=== PATIENT | female | born 1945 | race Caucasian/White ===

== ENCOUNTER 2023-04-14 15:04 | Inpatient (IN) | payer MEDICARE, OTHER ==
[~2023-04-14] VITALS: Ht 160 cm; Wt 54.4 kg
[2023-04-14 16:39] LABS: BASOPHILS ABSOLUTE AUTO 0.04 K/mm3 (0.00-0.23); BASOPHILS PERCENT AUTO 1 % (0-2); EOSINOPHILS ABSOLUTE AUTO 0.14 K/mm3 (0.00-0.68); EOSINOPHILS PERCENT AUTO 2 % (0-6); Hematocrit 33.8 % (33.0-51.0); Hemoglobin 10.8 g/dL (11.5-16.0); IMMATURE GRAN ABSOLUTE AUTO 0.02 K/mm3 (0.00-0.10); IMMATURE GRAN PERCENT AUTO 0 % (0-1); LYMPHOCYTES ABSOLUTE AUTO 1.31 K/mm3 (0.84-5.20); LYMPHOCYTES PERCENT AUTO 22 % (21-46); MONOCYTES ABSOLUTE AUTO 0.32 K/mm3 (0.16-1.47); MONOCYTES PERCENT AUTO 5 % (4-13); Mean Corpuscular HGB 31.5 pg (26.0-34.0); Mean Corpuscular Volume 99 fL (80-100); NEUTROPHILS ABSOLUTE AUTO 4.15 K/mm3 (1.96-9.15); NEUTROPHILS PERCENT AUTO 69 % (41-73); Platelet Count 382 K/mm3 (150-400); RDW Coefficient Variation 17.1 % (11.7-14.2); Red Blood Cell Count 3.43 M/mm3 (3.80-5.20); White Blood Cell Count 5.98 K/mm3 (4.00-11.30)
[2023-04-14 16:51] LABS: Prothrombin Time Results 10.5 Sec (9.7-11.5)
[2023-04-14 16:57] LABS: Albumin, Blood 2.8 g/dL (3.4-5.0); Albumin/Globulin Ratio 0.7 (0.8-1.8); Bilirubin, Total 0.3 mg/dL (0.1-1.0); Bun/Creatinine Ratio 14.7 (12.0-20.0); Calcium, Blood 8.6 mg/dL (8.5-10.1); Creatinine, Blood 0.54 mg/dL (0.40-1.00); Globulin, Blood 4.2 g/dL (2.2-4.0); Potassium, Blood 3.6 mmol/L (3.5-5.5)
[2023-04-14 17:12] LABS: Anti-Xa UFH, PHA Monitoring <0.10 IU/mL
--- NOTE | 2023-04-14 21:36 | NUR ---
ADMIT NOTE ADMITTED 77 YR OLD FEMALE FROM THE ED TO THE FLOOR WITH DX OF VTE BLOODCLOT (BILAT PE, AND CLOT/S IN LEFT LEG. SEE ED NOTES ON ADMISSION. ALERT AND ORIENTED. VOICED IS A NURSE. HEP DRIP WAS INFUSING FROM ED AT 18U/KG IN LEFT AC, BUT NOTED AREA WAS INFILTRATED. SITE DC'D AND NEW IV PLACED IN RIGHT ARM. TOLERATED WELL. ORIENTED TO USE OF CALL LIGHT. CALL LIGHT IN REACH.
[2023-04-14 21:42] VITALS: BP 125/63
[2023-04-15] VITALS (8 sets, daily range): BP systolic 110–140; BP diastolic 56–81
--- NOTE | 2023-04-15 00:51 | NUR ---
NURSE NOTE INTERMITTENT CONFUSION, PULLED OUT IV SHE WENT TO BATHROOM. VOICED ANGRILY THAT SHE DIDNT KNOW WHY SHE WAS HERE IN THE HOSPITAL AND WHEN REDIRECTED, VOICED SURPRISE THAT SHE WAS ON HEPARIN FOR PE'S AND CLOTS. WHEN NEW IV SITE OBTAINED, WILL RESTART HEPARIN DRIP AND CALL MD FOR POSSIBLE RESTRAINT TO PREVENT FUTURE ISSUES.
--- NOTE | 2023-04-15 01:30 | NUR ---
MD NOTIFIED OF PT CONFUSION AND RESTRAINT ORDER OBTAINED FOR BILAT WRISTS. WILL CONTINUE TO MONITOR. CALL LIGHT IN REACH. RESPS EVEN.
[2023-04-15 01:42] LABS: BASOPHILS ABSOLUTE AUTO 0.05 K/mm3 (0.00-0.23); BASOPHILS PERCENT AUTO 1 % (0-2); EOSINOPHILS ABSOLUTE AUTO 0.28 K/mm3 (0.00-0.68); EOSINOPHILS PERCENT AUTO 6 % (0-6); Hematocrit 30.4 % (33.0-51.0); Hemoglobin 9.8 g/dL (11.5-16.0); IMMATURE GRAN ABSOLUTE AUTO 0.01 K/mm3 (0.00-0.10); IMMATURE GRAN PERCENT AUTO 0 % (0-1); LYMPHOCYTES ABSOLUTE AUTO 1.39 K/mm3 (0.84-5.20); LYMPHOCYTES PERCENT AUTO 29 % (21-46); MONOCYTES ABSOLUTE AUTO 0.32 K/mm3 (0.16-1.47); MONOCYTES PERCENT AUTO 7 % (4-13); Mean Corpuscular HGB 31.3 pg (26.0-34.0); Mean Corpuscular HGB Conc 32.2 g/dL (31.5-36.5); Mean Corpuscular Volume 97 fL (80-100); Mean Platelet Volume 8.8 fL (9.1-12.4); NEUTROPHILS ABSOLUTE AUTO 2.67 K/mm3 (1.96-9.15); NEUTROPHILS PERCENT AUTO 57 % (41-73); Platelet Count 350 K/mm3 (150-400); RDW Standard Deviation 59.7 fL (35.1-46.3); Red Blood Cell Count 3.13 M/mm3 (3.80-5.20); White Blood Cell Count 4.72 K/mm3 (4.00-11.30)
[2023-04-15 02:16] LABS: Albumin, Blood 2.5 g/dL (3.4-5.0); Albumin/Globulin Ratio 0.7 (0.8-1.8); Bilirubin, Total 0.3 mg/dL (0.1-1.0); Bun/Creatinine Ratio 12.7 (12.0-20.0); Calcium, Blood 8.4 mg/dL (8.5-10.1); Creatinine, Blood 0.47 mg/dL (0.40-1.00); Globulin, Blood 3.7 g/dL (2.2-4.0); Potassium, Blood 3.3 mmol/L (3.5-5.5); Total Protein, Blood 6.2 g/dL (6.4-8.2)
--- NOTE | 2023-04-15 03:22 | NUR ---
SCALLOP CUTTER MACHINE SUMMARY VSS. WAS ADMITTED TO FLOOR EARLIER FROM THE ED WITH BILAT PE AND CLOTS IN LEG. PLACED ON HEPARIN DRIP IN THE ED, TRANSFERRED TO FLOOR, FIRST IV INFILTRATED, WAS DC'D AND ANOTHER IV PLACED IN RIGHT ARM. BECAME CONFUSED AND PULLED IV OUT WHEN GOING TO THE BATHROOM. BECAME AGITATED RE SITUATION, REDIRECTED, ANOTHER IV PLACED AND PT WAS PLACED IN BILAT SOFT WRIST RESTRAINTS PER MD ORDERS TO MAINTAIN IV HEPARIN DRIP. RESTING INTERMITTENTLY. CALL LIGHT IN REACH. WILL CONTINUE TO MONITOR.
--- NOTE | 2023-04-15 04:42 | NUR ---
NURSE NOTE PT RECEIVED FIRE IGNITION TEACHNIG RE NO SMOKING WHILE ON O2, AND NO SMOKING IN THE HOSPITAL EARLIER
--- NOTE | 2023-04-15 17:27 | NUR ---
SHIFT SUMMARY PATIENT PULLING ON HER IV AND TELE LEADS/STICKERS THROUGHOUT DAY, RESTRAINTS DC/D AT 0745, AND PLACED ON REMOTE MONITORING AT 1030. PATIENT REDIRECTABLE WITH VERBAL CUEING. NO PAIN ISSUES DURING THIS SHIFT. FIRE SAFETY PREVENTION AND EDUCATION PROVIDED. CALL LIGHT IN REACH. PATIENT DOES NOT CALL, REMOTE MONITOR ALERTS THROUGHOUT SHIFT. PATIENT LEFT UNIT AT [address] CASTANEDA.
--- NOTE | 2023-04-15 20:40 | NUR ---
TRANSFER NOTE/ASSUMPTION OF CARE PT TO ROOM FROM PROCEDURE AT 1908. SHIFT REPORT DONE AT BEDSIDE WITH AM RN. ORDERS REPORTED BY [facility] RN'S TO KEEP PT BEDBOUND OVERNIGHT, AND KEEP HOB FLAT FOR 30 MINUTES. FLOWSTASIS DEVICES IN POPLITEAL REGION OF BILAT LEGS. NO NOTED BLEEDING ON RIGHT LEG SITE, SMALL AMOUNT OF BLEEDING NOTED ON LEFT LEG SITE. MD CASTANEDA TO BEDSIDE WITH VERBAL ORDERS TO REMAIN BEDBOUND OVERNIGHT, RESTART HEP GTT AT PREVIOUS RATE, KEEP BOTH FLOWSTASIS DEVICES IN PLACE UNTIL AM. VERBAL ORDER FOR THIS RN TO CHECK SITE Q30MIN X4. SITE REMAINS UNCHANGED AT THIS TIME SINCE ARRIVAL TO UNIT. VITALS STABLE. PT PLACED ON 1L VIA NC D/T SPO2 88-89% ON RA WHILE LYING FLAT. PT DENIES PAIN OR SOB. SB/SR ON MONITOR. PT WITH HX DEMENTIA. ORIENTED TO SELF/FAMILY. BED ALARM ON. AVASURE CAMERA IN ROOM FOR SAFETY OF LINES AND OOB. BED IN LOWEST POSITION AND CALL LIGHT WITHIN REACH.
[2023-04-16 03:12] VITALS: BP 130/67
--- NOTE | 2023-04-16 04:30 | NUR ---
SHIFT SUMMARY NO ACUTE CHANGES OVERNIGHT. PT CONTINUES TO BE ALERT AND ORIENTED TO SELF ONLY. CONFUSED OFTEN. CAMERA AND BED ALARM ON IN ROOM FOR SAFETY. PT PULLING AT LINES, ATTEMPTING OOB, AND YELLING AT STAFF D/T CONFUSION DURING THIS SHIFT. CAN BE REDIRECTABLE AT TIMES. REINFORCED EDUCATION ABOUT POST PROCEDURE RESTRICTIONS AND BED BOUND STATUS. ON RA WITH SPO2 >92%. BP STABLE. SB/SR ON MONITOR. AFEBRILE. DENIES PAIN/SOB. FREQUENTLY ATTEMPTING TO GRAB FLOWSTASIS DEVICES ON BILAT POPLITEAL SITES. TEGADERM REPLACED ON DEVICE. NO NOTED NEW BLEEDING/DISCOLORATION/HEMATOMA. SEE PREVIOUS NOTE. PPP. HEP GTT INFUSING PER EMAR. BED IN LOWEST POSITION AND CALL LIGHT WITHIN REACH. THIS RN WILL CONTINUE TO MONITOR UNTIL SHIFT CHANGE AT 0700.
[2023-04-16 06:05] LABS: BASOPHILS ABSOLUTE AUTO 0.02 K/mm3 (0.00-0.23); BASOPHILS PERCENT AUTO 0 % (0-2); EOSINOPHILS PERCENT AUTO 0 % (0-6); Hematocrit 32.8 % (33.0-51.0); Hemoglobin 10.1 g/dL (11.5-16.0); IMMATURE GRAN ABSOLUTE AUTO 0.02 K/mm3 (0.00-0.10); IMMATURE GRAN PERCENT AUTO 0 % (0-1); LYMPHOCYTES ABSOLUTE AUTO 0.87 K/mm3 (0.84-5.20); LYMPHOCYTES PERCENT AUTO 19 % (21-46); MONOCYTES ABSOLUTE AUTO 0.13 K/mm3 (0.16-1.47); MONOCYTES PERCENT AUTO 3 % (4-13); Mean Corpuscular HGB 30.5 pg (26.0-34.0); Mean Corpuscular HGB Conc 30.8 g/dL (31.5-36.5); Mean Corpuscular Volume 99 fL (80-100); Mean Platelet Volume 9.7 fL (9.1-12.4); NEUTROPHILS ABSOLUTE AUTO 3.56 K/mm3 (1.96-9.15); NEUTROPHILS PERCENT AUTO 78 % (41-73); Platelet Count 427 K/mm3 (150-400); RDW Coefficient Variation 17.2 % (11.7-14.2); RDW Standard Deviation 62.6 fL (35.1-46.3); Red Blood Cell Count 3.31 M/mm3 (3.80-5.20)
[2023-04-16 06:30] LABS: Calcium, Blood 8.3 mg/dL (8.5-10.1); Creatinine, Blood 0.5 mg/dL (0.40-1.00); Potassium, Blood 3.6 mmol/L (3.5-5.5)
[2023-04-16 07:16] VITALS: BP 132/65
--- NOTE | 2023-04-16 09:17 | NUR ---
HEP GTT STOPPED AT ABOUT [address] CASTANEDA. PO ANTICOAG STARTED BY DR. TONY. FLOWSTASIS PLANNED FOR REMOVAL TWO HRS AFTER HEPARIN STOPPED.
--- NOTE | 2023-04-16 10:41 | NUR ---
BILATERAL FLOWSTASIS REMOVED TWO HOURS AFTER HEP GTT STOPPED. SITE CLEANED. TEGADERM INTACT. PT EDUCATED AND TOLERATED WELL.
--- NOTE | 2023-04-16 10:57 | NUR ---
PT REFUSING SHOWER OR BEDBATH. PT BELIEVES THAT SHE HAD A SHOWER THIS AM. SHE HAS NOT BEEN BATHED BUT WILL NOT LET STAFF CLEAN HER UP. HER WAS AT BEDSIDE TO WHITTNESS THE REFUSAL. I EDUCATED THE THAT WE CAN NOT FORCE CARE ON HER. HE UNDERSTOOD. WAITING FOR DISCHARGE.
[2023-04-16] MEDS ORDERED: DONEPEZIL HCL10 MG PO (11:08)
[2023-04-16] MEDS ORDERED: ELIQUIS5 M2 PO (11:09)
--- NOTE | 2023-04-16 12:09 | NUR ---
MORNING SUMMARY PT IS A&OX2-3. SHE FORGETS LIMITATIONS AND WILL TRY TO GET OUT OF BED WITHOUT ASSITANCE. PT PULLS AT LINES. VIRTUAL FIRE ALARM INSTALLER IN THE ROOM AND BED OR CHAIR ALARM IS IN PLACE. PT HAD HER FLOWSTASIS REMOVED AND THE DRESSINGS ARE C/D/I. PT REFUSED A BATH OR SHOWER TODAY. HAS BEEN AT BEDSIDE. PT IS PENDING DISCHARGE. PT'S TELE WAS D/C'D PER DR. TONY DUE TO THE PT PULLING IT OFF. WAITING ON A RIDE FOR THE PT BEFORE DISCHARGE. NO ACUTE EVENTS.
--- NOTE | 2023-04-16 13:45 | NUR ---
DISCHARGE: Pt and her given verbal and written discharge instructions. Including activity, wound care, follow up appointments and medications. Pt and deny questions. IV discontinued and cath intact. Pt ambulated out with and PEOPLESOFT. Stable at time of dishcarge.
== END 2023-04-16 13:55 | disposition home or self-care (01) | DRG 270 ==
LOC: ER 15:04 → SURS 17:51 → PCU 17:51 → MEDS 17:51 → PCU 04-15 17:30
PROVIDERS: Student in an Organized Health Care Education/Training Program; ADMIT Internal Medicine
PROC: 06C03ZZ Extirpation of Matter from Inferior Vena Cava, Percutaneous Approach (ICD-10-PCS; principal; 2023-04-15)
PROC: B51D1ZZ Fluoroscopy of Bilateral Lower Extremity Veins using Low Osmolar Contrast (ICD-10-PCS; 2023-04-15)
DX: I82.220 Acute embolism and thrombosis of inferior vena cava (principal); I26.99 Other pulmonary embolism without acute cor pulmonale; I82.422 Acute embolism and thrombosis of left iliac vein; G30.9 Alzheimer's disease, unspecified; F02.80 Dementia in other diseases classified elsewhere, unspecified severity, without behavioral disturbance, psychotic disturbance, mood disturbance, and anxiety; F32.A Depression, unspecified; I10 Essential (primary) hypertension; K63.89 Other specified diseases of intestine; E78.5 Hyperlipidemia, unspecified; E53.8 Deficiency of other specified B group vitamins; D53.9 Nutritional anemia, unspecified; R41.0 Disorientation, unspecified; E88.81 Metabolic syndrome and other insulin resistance; Z96.659 Presence of unspecified artificial knee joint; Z91.041 Radiographic dye allergy status; Z90.710 Acquired absence of both cervix and uterus; Z98.890 Other specified postprocedural states; Z90.722 Acquired absence of ovaries, bilateral
CPT/HCPCS: 36415; 37187; 37252; 75774; 75822; 75825; 76937; 80048; 80053; 85025; 85520; 85610; 85730; 93005; 93010; 93971; 94760; 96374; 99152; 99153; 99285-25; A9270; C1753; C1769; C1887; C1894; J1200; J1644; J1720; J2250; J3010; J7030; Q9967

== ENCOUNTER 2024-05-18 10:20 | Day surgery (SDC) | payer MEDICARE, OTHER ==
[~2024-05-18] VITALS: Ht 154.9 cm; Wt 69.8 kg
[~2024-05-18 10:20] MED LIST: Balanced Salt Epinephrine Irrigation Solution 500 mL IR SCH; DONEPEZIL HCL10 MG PO; ELIQUIS5 M2 PO; Lidocaine HCl/Pf 1% 5 ML VIAL XX SCH; MIRT15 PO; Moxifloxacin HCL 0.5 MG/0.1 ML 0.4MLSYR LEFTEYE SCH; NS 500 ML IV ONE; PHENYLEPHRINE\\TROPICAMIDE\\TETRACAINE OPHTHALMIC DILATING SOLN LEFTEYE PRN; TOCO1000 PO; TURMERIC; VITAMIN B121000 MCG PO; XARELTO20 MG PO
[2024-05-18] MEDS ORDERED: FentaNYL Citrate 50 MCG/ML 2 ML Injection ONE (11:19)
[2024-05-18] MEDS ORDERED: Midazolam HCl 1MG / ML 2ML Vial ONE (11:19)
[2024-05-18] MEDS ORDERED: NS 500 ML IV ONE (12:03)
--- NOTE | 2024-05-18 12:03 | NUR ---
05/18/24 1203 Selena Logan AT 1152 PLEDGET AT 1154
[2024-05-18] MEDS ORDERED: BETADINE LEFTEYE ONE (12:48)
[2024-05-18 13:42] VITALS: BP 137/60
== END 2024-05-18 13:30 | disposition home or self-care (01) ==
LOC: ORSCSDS 10:20
PROVIDERS: Student in an Organized Health Care Education/Training Program
PROC: 08RK3JZ Replacement of Left Lens with Synthetic Substitute, Percutaneous Approach (ICD-10-PCS; principal; 2024-05-18 11:30)
DX: H25.812 Combined forms of age-related cataract, left eye (principal); Z96.1 Presence of intraocular lens; E78.5 Hyperlipidemia, unspecified; F32.A Depression, unspecified; Z86.718 Personal history of other venous thrombosis and embolism; D64.9 Anemia, unspecified; I10 Essential (primary) hypertension; G30.9 Alzheimer's disease, unspecified; F02.80 Dementia in other diseases classified elsewhere, unspecified severity, without behavioral disturbance, psychotic disturbance, mood disturbance, and anxiety; Z79.01 Long term (current) use of anticoagulants; Z87.891 Personal history of nicotine dependence; Z79.899 Other long term (current) drug therapy
CPT/HCPCS: 82947; J2250; J3010; J7040; V2632

== ENCOUNTER 2024-10-12 08:23 | Day surgery (SDC) | payer MEDICARE, OTHER ==
[~2024-10-12 08:23] MED LIST changes: -Balanced Salt Epinephrine Irrigation Solution 500 mL IR SCH; -Lidocaine HCl/Pf 1% 5 ML VIAL XX SCH; -Moxifloxacin HCL 0.5 MG/0.1 ML 0.4MLSYR LEFTEYE SCH; +NS 250 ML IV SCH; -NS 500 ML IV ONE; -PHENYLEPHRINE\\TROPICAMIDE\\TETRACAINE OPHTHALMIC DILATING SOLN LEFTEYE PRN; -TURMERIC; +TURMERIC PO
[2024-10-12 10:12] VITALS: BP 133/52
[2024-10-12 11:12] VITALS: BP 139/64
[2024-10-12 11:35] VITALS: BP 143/72
== END 2024-10-12 11:40 | disposition home or self-care (01) ==
LOC: ATC 08:23
DX: D62 Acute posthemorrhagic anemia (principal); G30.9 Alzheimer's disease, unspecified; F02.80 Dementia in other diseases classified elsewhere, unspecified severity, without behavioral disturbance, psychotic disturbance, mood disturbance, and anxiety; E78.5 Hyperlipidemia, unspecified; Z86.711 Personal history of pulmonary embolism; Z79.01 Long term (current) use of anticoagulants; Z79.899 Other long term (current) drug therapy; Z87.891 Personal history of nicotine dependence; Z88.6 Allergy status to analgesic agent; Z90.710 Acquired absence of both cervix and uterus
CPT/HCPCS: 36430; 86850; 86900; 86901; 86920; 86923; J7050; P9016

== ENCOUNTER 2024-11-29 15:08 | Inpatient (IN) | payer MEDICARE, OTHER ==
[~2024-11-29] VITALS: Ht 162.6 cm; Wt 62.5 kg
[~2024-11-29 15:08] MED LIST changes: -NS 250 ML IV SCH
[2024-11-29] MEDS ORDERED: QUEtiapine Fumarate 25 MG Tab PO ONE (18:50)
[2024-11-29 19:11] LABS: BASOPHILS ABSOLUTE AUTO 0.03 K/mm3 (0.00-0.23); BASOPHILS PERCENT AUTO 0 % (0-2); EOSINOPHILS ABSOLUTE AUTO 0.01 K/mm3 (0.00-0.68); EOSINOPHILS PERCENT AUTO 0 % (0-6); Hematocrit 31.4 % (33.0-51.0); Hemoglobin 8.7 g/dL (11.5-16.0); IMMATURE GRAN ABSOLUTE AUTO 0.03 K/mm3 (0.00-0.10); IMMATURE GRAN PERCENT AUTO 0 % (0-1); LYMPHOCYTES ABSOLUTE AUTO 0.65 K/mm3 (0.84-5.20); LYMPHOCYTES PERCENT AUTO 9 % (21-46); MONOCYTES ABSOLUTE AUTO 0.43 K/mm3 (0.16-1.47); MONOCYTES PERCENT AUTO 6 % (4-13); Mean Corpuscular HGB Conc 27.7 g/dL (31.5-36.5); Mean Corpuscular Volume 94 fL (80-100); Mean Platelet Volume 9.2 fL (9.1-12.4); NEUTROPHILS ABSOLUTE AUTO 6.53 K/mm3 (1.96-9.15); NEUTROPHILS PERCENT AUTO 85 % (41-73); Platelet Count 434 K/mm3 (150-400); RDW Coefficient Variation 23.9 % (11.7-14.2); Red Blood Cell Count 3.35 M/mm3 (3.80-5.20); White Blood Cell Count 7.68 K/mm3 (4.00-11.30)
[2024-11-29] MEDS ORDERED: Dose Adjust by Pharmacy XX STA (19:14)
[2024-11-29] MEDS ORDERED: Heparin Sodium,Porcine/0.5 NS 500 ML IV SCH (19:15)
[2024-11-29 19:26] LABS: International Normalized Ratio 1.07; Prothrombin Time Results 11.4 Sec (9.7-11.5)
[2024-11-29 19:38] LABS: Albumin, Blood 3.2 g/dL (3.4-5.0); Albumin/Globulin Ratio 0.7 (0.8-1.8); Bilirubin, Total 0.8 mg/dL (0.1-1.0); Calcium, Blood 9.2 mg/dL (8.5-10.1); Creatinine, Blood 0.53 mg/dL (0.40-1.00); Globulin, Blood 4.6 g/dL (2.2-4.0); Potassium, Blood 3.4 mmol/L (3.5-5.5); Total Protein, Blood 7.8 g/dL (6.4-8.2)
[2024-11-29] MEDS ORDERED: FentaNYL Citrate 50 MCG/ML 2 ML Injection IV PRN (19:40)
[2024-11-29] MEDS ORDERED: Ondansetron HCl 2 MG / ML 2ML Vial IV PRN (19:40)
[2024-11-29] MEDS ORDERED: FLU VACC TS2024-25(6MOS UP)/PF 45 MCG/0.5 ML SYRINGE IM ONE (19:40)
[2024-11-29] MEDS ORDERED: NS 1,000 ML IV SCH (20:00)
[2024-11-29] MEDS ORDERED: Heparin Sodium 5000 Units/ML 1ML MDV IV ONE (20:10)
[2024-11-29] MEDS ORDERED: Potassium Chloride 40 MEQ in NS 250 ML IV SCH (20:30)
[2024-11-29 21:36] VITALS: BP 123/55
[2024-11-29 23:20] VITALS: BP 124/52
[2024-11-30 02:23] LABS: BASOPHILS ABSOLUTE AUTO 0.03 K/mm3 (0.00-0.23); BASOPHILS PERCENT AUTO 0 % (0-2); EOSINOPHILS ABSOLUTE AUTO 0.07 K/mm3 (0.00-0.68); EOSINOPHILS PERCENT AUTO 1 % (0-6); Hematocrit 26.3 % (33.0-51.0); Hemoglobin 7.3 g/dL (11.5-16.0); IMMATURE GRAN ABSOLUTE AUTO 0.02 K/mm3 (0.00-0.10); IMMATURE GRAN PERCENT AUTO 0 % (0-1); LYMPHOCYTES ABSOLUTE AUTO 1.29 K/mm3 (0.84-5.20); LYMPHOCYTES PERCENT AUTO 19 % (21-46); MONOCYTES ABSOLUTE AUTO 0.45 K/mm3 (0.16-1.47); MONOCYTES PERCENT AUTO 7 % (4-13); Mean Corpuscular HGB 26.2 pg (26.0-34.0); Mean Corpuscular HGB Conc 27.8 g/dL (31.5-36.5); Mean Corpuscular Volume 94 fL (80-100); Mean Platelet Volume 9.5 fL (9.1-12.4); NEUTROPHILS ABSOLUTE AUTO 4.92 K/mm3 (1.96-9.15); NEUTROPHILS PERCENT AUTO 73 % (41-73); Platelet Count 381 K/mm3 (150-400); RDW Coefficient Variation 23.9 % (11.7-14.2); RDW Standard Deviation 82.3 fL (35.1-46.3); Red Blood Cell Count 2.79 M/mm3 (3.80-5.20); White Blood Cell Count 6.78 K/mm3 (4.00-11.30)
[2024-11-30] MEDS ORDERED: Dose Adjust by Pharmacy XX STA ×3 (02:54→14:01)
[2024-11-30 03:03] LABS: Albumin, Blood 2.6 g/dL (3.4-5.0); Albumin/Globulin Ratio 0.7 (0.8-1.8); Bilirubin, Total 0.4 mg/dL (0.1-1.0); Bun/Creatinine Ratio 28.9 (12.0-20.0); Calcium, Blood 8.6 mg/dL (8.5-10.1); Creatinine, Blood 0.52 mg/dL (0.40-1.00); Globulin, Blood 3.7 g/dL (2.2-4.0); Total Protein, Blood 6.3 g/dL (6.4-8.2)
[2024-11-30 04:41] VITALS: BP 125/53
--- NOTE | 2024-11-30 07:27 | NUR ---
SHIFT SUMMARY PATIENT ARRIVED TO PCU 08 VIA STRETCHER AT 2130. PATIENT IS PLEASANTLY CONFUSED, ALERT AND ORIENTED TO SELF AND FAMILY. ABLE TO FOLLOW DIRECTIONS BUT VERY FORGETFUL. PATIENT ENDED UP PULLING OUT THREE IV'S THIS MORNING. PATIENT'S RIGHT FOOT IS DUSKY WITH RIGHT GREAT TOE CYANOTIC. DENIES PAIN, HAS NO SENSATION IN THE RIGHT GREAT TOE. PULSES FOUND BY DOPPLER IN THE RIGHT FOOT. WHILE SLEEPING PATIENT REQUIRED BEING ON 1 LITER O2 VIA NC DUE TO DESATING. SHE REPORTS NOT WEARING OXYGEN AT HOME. VITAL SIGNS STABLE. WILL CONTINUE TO MONITOR. CALL LIGHT WITHIN REACH.
[2024-11-30 07:53] VITALS: BP 115/57
--- NOTE | 2024-11-30 07:54 | NUR ---
ASSUMPTION NOTE: THIS RN TO ASSUME CARE OF PATIENT. PATIENT WAS RESTING, EASILY AROUSABLE. VITAL SIGSN TAKEN AND PATIENT STABLE. PATIENT IS ALERT AND ORIENTED X2, TO SELF & KNOWS THAT SHE IS [place]. THIS RN RE ORIENTED TO PLACE, DATE AND WHAT BROUGHT PATIENT IN. PATIENT IS FORGETFUL PER REPORT AND PULLS AT LINES. REMINDED TO LEAVE LINES SHE IS RECEVING MEDICATIONS THROUGH THEM. PATIENT DENIED CHEST PAIN/PRESSURE OR FEELING SOB. NO NAUSEA/VOMITTING. HAS BED IN LOWEST POSITION AND CALL LIGHT WITHIN REACH.
--- NOTE | 2024-11-30 09:54 | NUR ---
JENNIFER AT BEDSIDE: JENNIFER MORIN AT BEDSIDE. CALLED THE TO ASK SOME MORE QUESTIONS AND VERBAL ORDRED A CT ANGIOGRAM TO BE DONE STAT. ORDERS PLACED AND THIS RN NOTIFIED PATIENT.
[2024-11-30] MEDS ORDERED: DiphenhydrAMINE HCl 50 MG/ML 1ML Vial IV SCH (11:15)
[2024-11-30] MEDS ORDERED: Dexamethasone Sod Phos 10 MG/ML 1ML VIAL IV SCH (11:15)
[2024-11-30 11:30] VITALS: BP 132/58
--- NOTE | 2024-11-30 14:06 | NUR ---
MD CALLED: THIS RN CALLED MD REGARDING CTA RESULTS BEING BACK, NOTIFIED THAT PATIENTS FAMILY AT BEDSIDE AND ASKING FOR MD TO COME BY.
[2024-11-30] MEDS ORDERED: Morphine Sulfate 20 MG/1ML 1 ML Oral Syringe SL PRN (15:10)
[2024-11-30] MEDS ORDERED: Acetaminophen 325 MG TABLET PO PRN (15:10)
[2024-11-30] MEDS ORDERED: LORazepam 1 MG Tab PO PRN (15:10)
--- NOTE | 2024-11-30 15:30 | NUR ---
COMFORT CARE STATUS: PATIENT HAS TRANSTIONED TO COMFORT CARE AND PLAN IS TO DISCARHGE TOMORROW TO HOSPICE. PATIENT TELE HAS BEEN REMOVED, HEPARIN HAS BEEN DISCONTINUED AND PATIENT IS A MINCED & MOIST DIET. PATIENT FAMILY BROUGHT IN CLOTHES FOR PATIENT FOR DISCHARGE TOMORROW. HAS CALL LIGHT WITHIN REACH, BED IN LOWEST POSITION AND STATING SHE IS NOT NEEDING ANYTHING CURRENTLY.
--- NOTE | 2024-11-30 17:33 | NUR ---
SHIFT SUMMARY: PATIENT IS ALERT AND ORIENTED X2, TO SELF & PERSON. PATIENT FORGETS LIMITATIONS, BED ALARM IS ON. THROGHOUT THE SHIFT PATIENT PULLED SOME LINES. PT WENT FOR A CT, RESULTS ARE IN THE CHART. PATIENT & FAMILY CHATTED WITH THE MD AND THROUGHOUT THE SHIFT WAS TRANSITIONED TO COMFORT CARE AND IS NOW DNR. PATIENT HAS OXYGEN AT BEDSIDE FOR COMFORT BUT TAKES THE NASAL CANNULA OFF OCCASIONALLY. DENIED ANY PAIN THROUGH SHIFT THAT NEEDED TO BE MEDICATED. PATIENT FAMILY WAS AT BEDSIDE MOST OF SHIFT. CURRENTLY PATIENT HAS CALL LIGHT WITHIN REACH, BED IN LOWEST POSITION AND NOT STATING ANYTHING IS NEEDED AT THIS TIME.
--- NOTE | 2024-12-01 07:26 | NUR ---
SHIFT SUMMARY PATIENT ALERT AND ORIENTED X2. HAD NO COMPMLAINTS OF PAIN OR SHORTNESS OF BREATH. SLEPT WELL OVERNIGHT. WOKE UP CONFUSED AND DISORIENTED THIS MORNING. WAS EVENTUALLY REORIENTED TO SITUATION AND WENT BACK TO SLEEP. WILL CONTINUE TO MONITOR. CALL LIGHT WITHIN REACH.
--- NOTE | 2024-12-01 08:06 | NUR ---
ASSUMPTION NOTE: THIS RN TO ASSUME CARE. PATIENT IS SITTING UP IN BED DRINKING COFFEE AND WATCHING TV. PATIENT IS ALERT AND ORIENTED X2, TO SELF & PERSON. WAS REORIENTED TO BEING IN THE HOSPITAL AND WHAT EVENTS LEAD TO HER COMING IN. PATIENT WAS BROUGHT BREAKFAST. DENIED ANY CHEST PAIN/PRESSURE OR FEELING SHORT OF BREATH. DENIED ANY PAIN MEDICATIONS OR PAIN.
--- NOTE | 2024-12-01 13:47 | NUR ---
REQUESTED AND RCV'D POLST FROM [facility]. POLST DATED 09/13/2022: DNR, COMFORT MEASURES ONLY; SIGNED BY . COPIES OF POLST PROVIDED TO CARE MANAGEMENT, FAXED TO [place] [facility] AND SENT TO [facility].
--- NOTE | 2024-12-01 14:20 | NUR ---
DISCHARGE NOTE: PATIENT LEFT VIA TRANSPORT TO HOME WITH HOSPICE. PATIENT IS ALERT AND ORIENTED X2. KNOWS THAT SHE WILL BE RETURNING HOME TO BE WITH . TOOK ALL PERSONAL BELONGINGS & WALKED WITH NURSE BUSINESS SERVICES REPRESENTATIVE TO THE [place] OF THE TRANSPORT TEAM. PATIENT DENIED NEEDING OXYGEN ON THE RIDE AND DENIED FEELING SHORT OF BREATH.
== END 2024-12-01 13:59 | disposition hospice, home (50) | DRG 300 ==
LOC: ER 15:08 → PCU 19:37 → ERHOLD 19:37 → PCU 21:17
PROVIDERS: Emergency Medicine; ADMIT Internal Medicine
DX: I77.1 Stricture of artery (principal); F02.83 Dementia in other diseases classified elsewhere, unspecified severity, with mood disturbance; I82.411 Acute embolism and thrombosis of right femoral vein; I82.431 Acute embolism and thrombosis of right popliteal vein; I82.441 Acute embolism and thrombosis of right tibial vein; G30.9 Alzheimer's disease, unspecified; I10 Essential (primary) hypertension; Z66 Do not resuscitate; E78.5 Hyperlipidemia, unspecified; Z96.643 Presence of artificial hip joint, bilateral; Z96.653 Presence of artificial knee joint, bilateral; Z96.632 Presence of left artificial wrist joint; D49.0 Neoplasm of unspecified behavior of digestive system; F32.A Depression, unspecified; D53.9 Nutritional anemia, unspecified; Z88.8 Allergy status to other drugs, medicaments and biological substances; Z90.710 Acquired absence of both cervix and uterus; Z98.41 Cataract extraction status, right eye; Z90.721 Acquired absence of ovaries, unilateral; Z98.42 Cataract extraction status, left eye; Z79.899 Other long term (current) drug therapy; Z91.041 Radiographic dye allergy status
CPT/HCPCS: 36415; 75635; 80053; 83880; 85025; 85520; 85610; 85730; 93926; 93971; 94760; 99284-25; A9270; J1100; J1200; J1644; J3480; J7030; J7050; Q9967